=== PATIENT | female | born 1950 | race Caucasian/White ===

== ENCOUNTER 2024-07-24 09:30 | Outpatient (RCR) | payer MEDICARE, BC, SELFPAY ==
[2024-07-24 09:30] VITALS: BMI 28.1
[2024-07-24 09:35] VITALS: BMI 28.1
--- NOTE | 2024-07-24 11:12 | PCDIET ---
07/24/24 MNT consult completed.
== END 2024-10-14 12:15 | disposition home or self-care (01) ==
LOC: ANHDMC 09:30
PROVIDERS: Visit Provider Internal Medicine Endocrinology, Diabetes & Metabolism
DX: E11.65 Type 2 diabetes mellitus with hyperglycemia (principal); Z71.89 Other specified counseling; Z71.3 Dietary counseling and surveillance
CPT/HCPCS: 97802; G0108